=== PATIENT | female | born 1940 | race Two or more races ===

== ENCOUNTER 2018-06-21 11:17 | Outpatient (CLI) | payer OTHER | END 2018-06-21 17:00 | disposition home or self-care (01) | LOC: SONOGRAMA 11:17 | DX: N39.0 Urinary tract infection, site not specified (principal); I13.10 Hypertensive heart and chronic kidney disease without heart failure, with stage 1 through stage 4 chronic kidney disease, or unspecified chronic kidney disease; N18.3 Chronic kidney disease, stage 3 (moderate) ==

== ENCOUNTER 2019-03-16 15:57 | Outpatient (CLI) | payer OTHER | END 2019-03-16 16:12 | disposition home or self-care (01) | LOC: RAD 15:57 | DX: M54.2 Cervicalgia (principal); M54.5 Low back pain; M54.6 Pain in thoracic spine ==

== ENCOUNTER 2019-03-22 09:23 | Outpatient (CLI) | payer OTHER ==
[2019-03-22] MEDS ORDERED: METHOTREXA25 MG/1 M1 IJ (10:30)
[2019-03-22] MEDS ORDERED: METOPROLOL ER-1 EAC1 PO (10:30)
[2019-03-22] MEDS ORDERED: ACID REDUCER20 M1 PO (10:31)
[2019-03-22] MEDS ORDERED: HORIZANT300 MG PO (10:31)
[2019-03-22] MEDS ORDERED: LOSARTAN-HCTZ1 EAC1 PO (10:32)
[2019-03-22] MEDS ORDERED: DIALYVITE 800-1 EACH PO (10:32)
[2019-03-22] MEDS ORDERED: PAXIL20 MG PO (10:33)
== END 2019-03-22 10:22 | disposition home or self-care (01) ==
LOC: NUCLEAR 09:23
DX: M81.0 Age-related osteoporosis without current pathological fracture (principal); I87.2 Venous insufficiency (chronic) (peripheral)

== ENCOUNTER 2019-03-22 09:58 | Emergency (ER) | payer OTHER ==
[~2019-03-22] VITALS: Ht 175.3 cm; Wt 83.9 kg
[2019-03-22] MEDS ORDERED: METOPROLOL ER-1 EAC1 PO (10:30)
[2019-03-22] MEDS ORDERED: METHOTREXA25 MG/1 M1 IJ (10:30)
[2019-03-22] MEDS ORDERED: HORIZANT300 MG PO (10:31)
[2019-03-22] MEDS ORDERED: ACID REDUCER20 M1 PO (10:31)
[2019-03-22] MEDS ORDERED: LOSARTAN-HCTZ1 EAC1 PO (10:32)
[2019-03-22] MEDS ORDERED: DIALYVITE 800-1 EACH PO (10:32)
[2019-03-22] MEDS ORDERED: PAXIL20 MG PO (10:33)
== END 2019-03-22 12:43 | disposition home or self-care (01) ==
LOC: ER 09:58
DX: R42 Dizziness and giddiness (principal)

== ENCOUNTER 2019-12-28 12:28 | Inpatient (IN) | payer OTHER ==
[~2019-12-28] VITALS: Ht 165.1 cm; Wt 72.6 kg
[~2019-12-28 12:28] MED LIST: ACID REDUCER20 M1 PO; DIALYVITE 800-1 EACH PO; HORIZANT300 MG PO; LOSARTAN-HCTZ1 EAC1 PO; METHOTREXA25 MG/1 M1 IJ; METOPROLOL ER-1 EAC1 PO; PAXIL20 MG PO
[2019-12-28] MEDS ORDERED: SIMVASTATIN5 MG PO (12:47)
--- NOTE | 2019-12-28 12:55 | NUR ---
SE RECIBE PTE FEMENINA, MAYOR DE EDAD, ALERTA Y ORIENTADA X 3. ACOMPANA DE FAMILIAR. PTE REFIERE MAREOS QUE LA LLEVARON A CAERSE EN EL ERIC. SE MIDEN SV, SE UBICA EN AREA DE OBSERVACION.
--- NOTE | 2019-12-28 14:25 | NUR ---
SE JASON MUESTRAS DE PANTERA, SE CANALIZA EN BRAZO IZQ CON ANGIO#20 Y SE ADMINISRA 0.9NSS A 125ML POR HORA CRISS ORDEN MEDICA
--- NOTE | 2019-12-28 15:19 | NUR ---
SE RECIBE PTE FEMENINA ALERTA Y ORIENTADA EN COMPANIA DE FAMILIAR, EN LIBIA BAJA CON BARANDAS ELEVADAS Y TIMBRE ACCESIBLE. VENOPUNCION PATENTE RYLEY DE EDEMA Y ERITEMA RECIBEIENDO TERAPIA DE IVFS 0.9NSS BAJANDO A 125ML/HR. PENDIENTE U/A PTE CON ENVASE DEBIDAMENTE ORIENTADA Y ESTUDIO CT.
--- NOTE | 2019-12-28 20:16 | NUR ---
1840 PTE SE OSBERVA PTE TEMBLOROSA Y NO SIGUE COMANDOS, SE ESTIMA TEMPERATURA: 37.8 C Y SATURACION DE OXIGENO 99%. SE NOTIFICA A , EL CUAL ORDENA ADMINISTRACION DE MEDICAMENTOS Y MUESTRAS DE LABORATORIO. 1900 SE OBSERVA CANALIZACION INFILTRADA, SE REMUEVE LA MISMA, Y SE CANALIZA PTE EN MANO R+, BAJO MEDIDAS ASEPTICAS, POR ; AREA RYLEY DE EDEMA Y ERITEMA. SE ADMINISTRAN MEDICMANETOS ORDENADOS, BAJO MEDIDAS ASEPTICAS. 2100 SE COLECTAN MUESTRAS DE LABORATORIOS, BAJO MEDIDAS ASEPTICAS, CRISS ORDEN MEDICA. SE ROTULAN Y ENVIAN A LABORATORIO.
--- NOTE | 2019-12-29 01:30 | NUR ---
PACIENTE ALERTA Y ORIENTADA X3. SE ORIENTA SOBRE TX A RECIBIR Y REFIRIO ENTENDER PACIENTE Y FAMILIAR. SE ADMINISTRO DRIP DE LEVOPHED 4MG/250ML D5W BAJANDO A 10ML/HR ORDENADO POR DR. ANNA ALVAREZ POR BP MANUAL 80/40MMHG. SE REALIZO CANALIZACION EN MANO DERECHA BAJO MEDIDAS ASEPTICAS. SE UBICO EN CAMA #16 EN UNIDAD DE DOLOR DE PECHO ORDENADO POR DR. ANNA ALVAREZ. SE NOTIFICA A MISS. NIKI TAVERAS DEL AREA. SE CONECTA A MONITOR CARDIACO Y OXIMETRIA DE PULSO.
--- NOTE | 2019-12-29 02:32 | NUR ---
2:30AM SE RECIBE PTE LA CUAL LLEGA EN S[place]A DE [place] DEL AREA DE OBSERVACION, EN COMPANIA DE FAMILIARES. SE UBICA EN CAMA NIVEL MAS BAJO, CALLE DE IDENTIFICACION Y BARANDAS ELEVADAS POR PRECAUCION. SE CONECTA A MONITOR CARDIACO Y OXIMETRO DE PULSO. AL MOMENTO CON BUEN PATRON RESPIRATORIO SATURANDO 95% CRISS OXIMETRO DE PULSO. B/P MANUAL 82/44. IV'S PATENTES Y LIBRES DE EDEMA O ERITEMA CON 0.9% NSS @120ML/HR Y H/L. SE OTIRNTA A FAMILIARES SOBRE NORMAS DE LA UNIDAD LOS CUALES REFIEREN ENTENDER. SE ADMINISTRAN MEDICAMENTOS CRISS ORDEN MEDICA Y SIGUIENDO MEDIDAS ASEPTICAS. SE MANTIENE BAJO OBSERVACION, EN CAMA Y CONECTADA A MONITOR CARDIACO Y OXIMETRO DE PULSO. PENDIENTE A CONSULTA CON DR Petra ALVAREZ.
--- NOTE | 2019-12-29 07:00 | NUR ---
PTE ALERTA Y ORIENTADA POR KAMRYN DIMENSIONES CON BUEN PATRON RESPIRATORIO. SE OBSERVA EN CAMA BAJA, BARANDAS ELEVADAS, FRENOS AJUSTADOS Y TIMBRE ACCESIBLE. TIENE CANALIZACIONES PATENTE RYLEY DE EDMA Y ERITEMA CON .9NSS @ 125ML/HR Y LEVOPHED 4MG/250 @8 ML/HR. SE RYLEE S/V. PTE CALIENTE AL TACTO. CONSULTA PENDIENTE CON DR.ESTEBAN ALVAREZ.
--- NOTE | 2019-12-29 08:10 | NUR ---
DR Dajuan ALVAREZ ORDENA DISMINUIR VELOCIDAD DE INFUSION DE LEVOPHED 4 MG DE 8 ML/HR A 4 ML/HR Y NOTIFICAR BP A LA HORA DEL CAMBIO.
--- NOTE | 2019-12-29 08:20 | NUR ---
DR. ANNA ALVAREZ EVALUA A PTE.
--- NOTE | 2019-12-29 09:19 | NUR ---
SE NOTIFICA A DR E ALVAREZ BP 70/50 MMHG, ORDENA VOLVER A AUMENTAR VELOCIDAD DE INFUSION MG A 8 ML/HR.
[2020-01-16] MEDS ORDERED: [UNRECOGNIZED DRUG - OTHER] PO (13:18)
[2020-01-31] MEDS ORDERED: MULTI VITAMIN1 EACH PO (13:14)
[2020-01-31] MEDS ORDERED: [UNRECOGNIZED DRUG - OTHER] PO (13:16)
== END 2020-01-04 11:19 | disposition home or self-care (01) | DRG 872 ==
LOC: ER 12:28 → SURH 12-29 09:15 → ICU 12-29 09:15 → ICU-2 12-29 09:15 → ICU 12-29 13:37 → SURH 12-31 16:55
PROVIDERS: ADMIT Internal Medicine; ATTEND Internal Medicine
PROC: BW28ZZZ Computerized Tomography (CT Scan) of Head (ICD-10-PCS; principal; 2019-12-28)
PROC: 3E0F7SF Introduction of Other Gas into Respiratory Tract, Via Natural or Artificial Opening (ICD-10-PCS; 2019-12-30)
PROC: BT43ZZZ Ultrasonography of Bilateral Kidneys (ICD-10-PCS; 2020-01-03)
DX: A41.9 Sepsis, unspecified organism (principal); N39.0 Urinary tract infection, site not specified; N17.8 Other acute kidney failure; T80.1XXA Vascular complications following infusion, transfusion and therapeutic injection, initial encounter; I10 Essential (primary) hypertension; M06.8A Other specified rheumatoid arthritis, other specified site; F32.89 Other specified depressive episodes; Z20.828 Contact with and (suspected) exposure to other viral communicable diseases; I70.1 Atherosclerosis of renal artery; I80.8 Phlebitis and thrombophlebitis of other sites; B96.20 Unspecified Escherichia coli [E. coli] as the cause of diseases classified elsewhere

== ENCOUNTER 2020-01-18 05:55 | Day surgery (SDC) | payer OTHER ==
[~2020-01-18 05:55] MED LIST changes: +SIMVASTATIN5 MG PO; +[UNRECOGNIZED DRUG - OTHER] PO
[2020-01-18] MEDS ORDERED: KEFLEX500 MG PO ×2 (09:33)
[2020-01-18] MEDS ORDERED: ULTRAM50 MG PO ×2 (09:34)
[2020-01-31] MEDS ORDERED: MULTI VITAMIN1 EACH PO (13:14)
[2020-01-31] MEDS ORDERED: [UNRECOGNIZED DRUG - OTHER] PO (13:16)
== END 2020-01-18 11:00 | disposition home or self-care (01) ==
LOC: CIR.AMB 05:55
PROVIDERS: ATTEND Surgery
DX: R15.9 Full incontinence of feces (principal); Z20.828 Contact with and (suspected) exposure to other viral communicable diseases
CPT/HCPCS: 64581; 95972; C1767

== ENCOUNTER 2020-02-01 06:37 | Day surgery (SDC) | payer OTHER ==
[~2020-02-01 06:37] MED LIST changes: +KEFLEX500 MG PO; +MULTI VITAMIN1 EACH PO; +ULTRAM50 MG PO; +[UNRECOGNIZED DRUG - OTHER] PO
== END 2020-02-01 11:30 | disposition home or self-care (01) ==
LOC: CIR.AMB 06:37 → CIR LITO 12:38
PROVIDERS: ATTEND Surgery
DX: R15.9 Full incontinence of feces (principal); Z20.828 Contact with and (suspected) exposure to other viral communicable diseases
CPT/HCPCS: 64590; 95971; L8679

== ENCOUNTER 2021-04-29 18:07 | Emergency (ER) | payer OTHER ==
[~2021-04-29] VITALS: Ht 167.6 cm; Wt 80.7 kg
== END 2021-04-30 00:47 | disposition home or self-care (01) ==
LOC: ER 18:07
DX: R55 Syncope and collapse (principal); N39.0 Urinary tract infection, site not specified; R10.2 Pelvic and perineal pain